=== PATIENT | male | born 1980 | race Caucasian/White ===

== ENCOUNTER → 2019-05-06 | Emergency (ER) | payer SELFPAY ==
[~2019-05-06] VITALS: Ht 182.9 cm; Wt 93.5 kg
--- NOTE | 2019-05-06 16:03 | NUR ---
PT AMBULATED TO ED C/O INCREASED SWELLING, REDNESS AND TENDER TO TOUCH IN RLE. PT DENIES ANY RECENT INJURIES OR ILLNESSES. RLE NOTED TO BE RED, TENDER AND SLIGHTLY SWOLLEN. PT DENIES C/O CP, ABD PAIN OR SHORTNESS OF BREATH.
--- NOTE | 2019-05-06 16:19 | NUR ---
RADIOLOGY AND LAB COMPLETED, US AT BEDSIDE PENDING COMPLETION OF EKG.
[2019-05-06 16:26] LABS: BASOPHILS # (AUTO) 0.05 x10^3/uL (0-0.1); BASOPHILS % (AUTO) 1 % (0-1); EOSINOPHILS # (AUTO) 0.23 x10^3/uL (0-0.4); EOSINOPHILS % (AUTO) 2 % (1-7); LYMPHOCYTES # (AUTO) 2.11 x10^3/uL (1-3.4); LYMPHOCYTES % (AUTO) 20 % (22-44); MD NO; MEAN CORPUSCULAR HEMOGLOBIN 30.8 pg (27.5-34.5); MEAN CORPUSCULAR HGB CONC 33.7 g/dL (33.2-36.2); MEAN CORPUSCULAR VOLUME 91.6 fL (81-97); MEAN PLATELET VOLUME 9.5 fL (7.4-10.4); MONOCYTES # (AUTO) 0.84 x10^3/uL (0.2-0.8); MONOCYTES % (AUTO) 8 % (2-9); NEUTROPHILS # (AUTO) 7.25 x10^3/uL (1.8-6.8); NEUTROPHILS % (AUTO) 69 % (42-75); PLATELET COUNT 243 x10^3/uL (130-400); RED BLOOD COUNT 4.53 x10^6/uL (4.38-5.82); RED CELL DISTRIBUTION WIDTH 13.1 % (9.4-14.8)
[2019-05-06 16:31] LABS: ALANINE AMINOTRANSFERASE 28 U/L (12-78); ALBUMIN 3.3 g/dL (3.4-5.0); ANION GAP 6 mmol/L (5-15); CALCIUM 8.3 mg/dL (8.5-10.1); CHLORIDE 107 mmol/L (98-107); CREATININE 1.01 mg/dL (0.7-1.3)
[2019-05-06 16:37] LABS: ALKALINE PHOSPHATASE 93 U/L (45-117); BILIRUBIN,TOTAL 0.5 mg/dL (0.2-1.0); TOTAL PROTEIN 7.1 g/dL (6.4-8.2)
[2019-05-06 17:14] VITALS: BP 140/68
--- NOTE | 2019-05-06 17:20 | NUR ---
REVIEWED DISCHARGE INSTRUCTIONS AND PRESCRIPTIONS W/ PT. REVIEWED CELLULITIS W/ PT AND IMPORTANCE OF TAKING PRESCRIBED MEDICATIONS. PT PROVIDED W/ CARE CHEST REFERRAL, VERBALIZED UNDERSTANDING TO FOLLOWING UP W/ CARE CHEST FOR ASSISTANCE W/ MEDICATIONS AND MEDICAL CARE. PT VERBALIZED UNDERSTANDING TO INFORMATION PROVIDED INCLUDING FOLLOW UP CARE, RETURN PRECAUTIONS, HAND HYGIENE AND MEDICATIONS. PT DENIED FURTHER QUESTIONS/CONCERNS. PT AMBULATED FROM ED.
== END ==
LOC: ED 17:18
DX: L03.115 Cellulitis of right lower limb (principal); R60.9 Edema, unspecified; R00.0 Tachycardia, unspecified
CPT/HCPCS: 36415; 71045; 80053; 83880; 85025; 93005; 99285